=== PATIENT | female | born 1970 | race Two or more races ===

== ENCOUNTER 2025-01-10 13:22 | Emergency (ER) | payer OTHER ==
[~2025-01-10] VITALS: Ht 165.1 cm; Wt 90.7 kg
[2025-01-10] MEDS ORDERED: FAMOTIDINE/PF 20 MG/2 ML VIAL IV ONE (16:15)
[2025-01-10] MEDS ORDERED: KETOROLAC TROMETHAMINE 30 MG VIAL IV ONE (16:15)
[2025-01-10] MEDS ORDERED: 0.9 % SODIUM CHLORIDE 1,000 ML IV ONE (16:15)
[2025-01-10 17:17] LABS: URINE APPEARANCE Clear; URINE BILIRRUBIN Negative (NEGATIVE); URINE BLOOD Large; URINE COLOR Orange; URINE GLUCOSE Negative (NEGATIVE); URINE KETONE Trace (NEGATIVE); URINE LEUKOCYTE Small; URINE NITRATE Negative; URINE UROBILINOGEN 0.2 E.U./dl
[2025-01-10 17:19] LABS: BASO % 0.7 % (0.1-1.2); EOS # 0.03 (0.04-0.54); EOS % 0.6 % (0.7-7.0); LYMPH # 1.66 (1.18-3.74); LYMPH % 31.0 % (19.3-53.1); MEAN PLATELET VOLUME 8.90 fl (9.4-12.4); MONO # 0.35 (0.24-0.82); MONO % 6.5 % (4.7-12.5); NEUT # 3.26 (1.56-6.13); NEUT % 60.8 % (34.0-71.1); RED CELL DISTRIBUTION WIDTH 19.4 % (11.6-14.4)
[2025-01-10 17:22] LABS: URINE BACTERIA 483.5 uL (0.0-1933); URINE EPITHELIAL CELLS 13.8 uL (0.0-38.8); URINE RBC 56.0 uL (0.0-20.8); URINE WBC 32.1 uL (0.0-23.2)
[2025-01-10 17:22] LABS: INR 0.97
[2025-01-10 17:33] LABS: ALT/SGPT 37.0 U/L (12-78); AST/SGOT 31.0 U/L (15-37); BILIRUBIN TOTAL 0.62 mg/dL (0.3-1.2); BUN CREA RATIO 15.0 (7.0-25.0); CREATININE SERUM 0.68 mg/dL (0.55-1.02); GFR 90.51; GLOBULINA 5.3 G/DL (2.4-3.5); GLUCOSE FASTING 112.0 mg/dL (65-100); OSMOLALITY SERUM 274.0 MOSM/KG (275-295)
[2025-01-10 17:34] LABS: COVID-19 AG NEGATIVE (NEGATIVE)
[2025-01-10 17:40] LABS: URINE CAST 0.00 uL (0.0-1.40); URINE PROTEIN 100 (NEGATIVE)
[2025-01-10 21:19] VITALS: BP 142/84; O2SAT 99
== END 2025-01-10 21:22 ==
LOC: ER 13:22
PROVIDERS: General Practice
DX: R10.A1 Flank pain, right side (principal); Z20.822 Contact with and (suspected) exposure to COVID-19; D17.71 Benign lipomatous neoplasm of kidney; I10 Essential (primary) hypertension; Z87.09 Personal history of other diseases of the respiratory system